=== PATIENT | male | born 1970 | race Two or more races ===

== ENCOUNTER 2017-03-12 12:19 | Day surgery (SDC) | payer BC ==
[2017-03-06 14:20] VITALS: BMI 34.0
[~2017-03-12 12:19] MED LIST: DEXAMETHASONE SOD PHOSPHATE 10 MG/ML 1 ML VIAL IV ONE; HEPARIN SODIUM,PORCINE 5,000 UNIT/ML 1 ML VIAL SQ ONE; LIDOCAINE 1% 20 ML VIAL (10MG/ML) FOR IV START INTRADERMA PRN; MIDAZOLAM 2 MG/2 ML VIAL IV PRN; ONDANSETRON 4 MG/2 ML VIAL IVP ONE; SCOPOLAMINE 1.5MG/72HR PATCH TRANSDERM ONE; ceFAZolin 2 GM in SODIUM CHLORIDE 0.9% 100 ML IVPB ONE
[2017-03-12] MEDS: LACTATED RINGERS 1,000 ML IV SCH ×3 (12:42→23:37)
[2017-03-12] MEDS ORDERED: LABETALOL 5 MG/ML VIAL MDV ONE (13:34)
[2017-03-12] MEDS ORDERED: fentaNYL (PF) 50 MCG/ML 2 ML AMP ONE (13:34)
[2017-03-12] MEDS ORDERED: GLYCOPYRROLATE 0.2 MG/ML 2 ML VIAL ONE (13:34)
[2017-03-12] MEDS ORDERED: VECURONIUM 10 MG VIAL IV ONE (13:34)
[2017-03-12] MEDS ORDERED: MIDAZOLAM 2 MG/2 ML VIAL ONE (13:34)
[2017-03-12] MEDS ORDERED: PROPOFOL 10 MG/ML 20 ML VIAL IV ONE (13:34)
[2017-03-12] MEDS ORDERED: LIDOCAINE 1% INJ 10MG/ML (20 ML MDV) ONE (13:34)
[2017-03-12] MEDS ORDERED: KETOROLAC 30 MG/ML 1 ML VIAL ONE (13:34)
[2017-03-12] MEDS ORDERED: SUCCINYLCHOLINE CHLORIDE 100 MG/5 ML SYR IV ONE (13:34)
[2017-03-12] MEDS ORDERED: HYDROmorphone (PF) 1 MG/ML ONE (13:34)
[2017-03-12] MEDS ORDERED: NEOSTIGMINE 1 MG/ML 10 ML VIAL ONE (13:34)
[2017-03-12] MEDS ORDERED: BUPIVACAINE (PF) 0.25% 30 ML VIAL SQ ONE ×2 (14:00)
--- NOTE | 2017-03-12 15:40 | P.OP ---
Date of Procedure: 03/12/17 Preoperative Diagnosis: Umbilical hernia Postoperative Diagnosis: Incarcerated umbilical hernia with incarcerated preperitoneal fat Procedure(s) Performed: Robot assisted laparoscopic umbilical hernia repair with mesh Implants: Anesthesia: YOLANDAA Surgeon: Krystal Thakur Estimated Blood Loss (ml): 5 Pathology: none sent Condition: stable Indications for Procedure: Operative Findings: A Rodas had a small umbilical hernia which measured 2.5 cm in fascial defect another small just off the midline hernia which was 1.5 cm defect. Patient also has bilateral inguinal hernias which are very small and were not clinically palpable prior to the procedure or are not symptomatic. The patient continues to smoke and I explained to them the risk of recurrence. Once the patient sees me in the office will discuss what we need to do for those bilateral inguinal hernias he was not consented for this time and he is not currently symptomatically from them. Description of Procedure: Informed consent was obtained and the patient prior to the operation. Patient identified in the preoperative holding area taken the operating room placed in supine position given general anesthesia with endotracheal intubation. The patient's right arm was tucked and left plaed. After appropriately positioning the patient the patient was prepped and draped in the usual sterile surgical fashion. Appropriate timeout was called. Patient received 2 g of Ancef for skin prophylaxis and 5000 units of subcu heparin for thromboprophylaxis preoperatively. SCDs were also placed. Left upper quadrant with a identified and infiltrated with lidocaine small incision was made with the help of 11 blade and then a Veress needle was introduced position of which was checked with the help of the drop test. The abdomen was then insufflated to 15 mmHg. Once that was done, 12 mm port was placed in the left upper quadrant and 2 8 mm ports were placed in the left upper quadrant and left lower quadrant respectively. At this time for laparoscopic scope was removed and the robot was docked with the 12 mm camera and the progress in the left hand and scissors in the right hand were taken.. The hernia was identified and after taking down the preperitoneal fat which revealed another occult hernia were measured. The umbilical hernia was 2 cm fascial defect and the other hernia which was inferior and lateral to it was 1.5 cm fascial defect. A preperitoneal plane was created around the fascial defect extending below so that there was good area to place the mesh . After that the fascial defect was closed with a running 0 stratafix on a [address]1 Once that was done and the needle was removed a 11.4 cm circular ventral like [address] . Running 2 0V lock suture was used to stitch the mesh to the abdominal wall. Once that was done both needles were removed. The mesh was flat well in placed with good overlap. There is no bleeding. At this time the procedure was terminated. The robot was undocked and its instruments removed. Using the laparoscope the 12 mm port site was closed with a Mike Ann and 0 Vicryl. The ports were removed abdomen was desufflated and the skin was closed with the help of 4-0 Monocryl. Dermabond was applied. The patient tolerated the procedure well there were no complications patient was taken to recovery room in stable condition after extubation. Plan - Discharge Summary New Discharge Prescriptions: No Action Hydrocodone/Acetaminophen [[place] 10-325] 1 tab PO BID PRN PRN Reason: Pain Wellbutrin(Dose Unknown) 1 tab PO QAM Multivitamins, Thera [Multivitamin (formulary)] 1 tab PO DAILY Discharge Medication List Hydrocodone/Acetaminophen [[place] 10-325] 1 tab PO BID PRN 03/06/17 [History] Multivitamins, Thera [Multivitamin (formulary)] 1 tab PO DAILY 03/06/17 [History ] Wellbutrin(Dose Unknown) 1 tab PO QAM 03/06/17 [History]
[2017-03-12] MEDS ORDERED: LACTATED RINGERS 1,000 ML IV ONE (15:45)
[2017-03-12] MEDS: HYDROmorphone 1 MG/ML 1 ML SYRINGE IVP PRN ×4 (15:58→16:19)
[2017-03-12] MEDS ORDERED: MEPERIDINE 50 MG/ML SYRINGE IVP ONE (16:34)
[2017-03-12] MEDS ORDERED: ONDANSETRON 4 MG/2 ML VIAL IVP ONE (16:58)
[2017-03-12] MEDS ORDERED: HYDROcodone/APAP 10-325MG 1 EACH TAB PO ONE (19:45)
[2017-03-12] MEDS ORDERED: ONDANSETRON ODT 4 MG TAB PO PRN (20:12)
--- NOTE | 2017-03-12 20:32 | P.GSHP ---
History of Present Illness H&P Date: 03/12/17 Chief Complaint: hypotension s/p ventral hernia repair Patient underwent an uneventful robto assisted laparoscopic ventral hernia. The patient is not hypertensive and does not take anithypertensive medications. He was given labetalol during the procedure. Post oepratively, the patient has had significant nausea and light headedness with hyptensio with his blood pressure in the 100/60 range. He was given IV fluids and is doing better. Has not urinated. He was also given dilaudid in post op. - Constitutional Constitutional: Reports weakness - Cardiovascular Cardiovascular: Reports lightheadedness, Denies chest pain, Denies shortness of breath - Respiratory Respiratory: Denies cough, Denies 7 - Gastrointestinal Gastrointestinal: Reports nausea, Reports vomiting - Neurological Neurological: Denies numbness, Denies weakness - Psychiatric Psychiatric: Denies anxiety, Denies depression - Endocrine Endocrine: Denies fatigue, Denies weight change Past Medical History Additional Past Medical History / Comment(s): umbilical hernia History of Any Multi-Drug Resistant Organisms: None Reported Past Surgical History: Hernia Repair Additional Past Surgical History / Comment(s): hiatal hernia surgery, 3 epidural spinal injections Past Anesthesia/Blood Transfusion Reactions: No Reported Reaction Past Psychological History: No Psychological Hx Reported Smoking Status: Former smoker Past Alcohol Use History: None Reported Additional Past Alcohol Use History / Comment(s): quit smoking 4 days ago, smoked since age 16, 1 PPD Past Drug Use History: None Reported - Past Family History Mother Family Medical History: Cancer Medications and Allergies Home Medications Medication Instructions Recorded Confirmed Type Hydrocodone/Acetaminophen [[place] 1 tab PO BID PRN 03/06/17 03/06/17 History 10-325] Multivitamins, Thera [Multivitamin 1 tab PO DAILY 03/06/17 03/06/17 History (formulary)] Wellbutrin(Dose Unknown) 1 tab PO QAM 03/06/17 03/06/17 History Allergies Allergy/AdvReac Type Severity Reaction Status Date / Time No Known Allergies Allergy Verified 03/06/17 14:13 Surgical - Exam Vital Signs Temp Pulse Resp Pulse Ox 98.6 F 64 16 98 03/12/17 12:36 03/12/17 12:36 03/12/17 12:36 03/12/17 12:36 - General well developed, well nourished, moderate distress - Eyes PERRL, normal ocular movement - ENT normal pinna, normal nares - Neck no masses - Respiratory normal expansion, normal respiratory effort - Cardiovascular Rhythm: regular - Abdomen Soft and appropriately tender incisions look good - Neurologic normal coordination - Musculoskeletal normal posture Assessment and Plan (1) Ventral hernia Status: Acute (2) Hypotension Status: Acute Plan: Patient has undergone a complicated robot-assisted laparoscopic ventral hernia repair is having significant amount of pain and was given labetalol and Dilaudid postoperatively and intraoperatively. This resulted in hypotension he also had a bladder scan done in recovery which revealed 483 mL of urine in the bladder. At this time a scopolamine patch is being placed for nausea. Zofran she'll be placed she will given IV fluids and start Been Ordered. The Patient Will Be Admitted to Constantly with Medical Consult for the Hypertension Further Condition to Follow-Up to the Labs Are Done.
[2017-03-12 21:12] LABS: Anion Gap 12 mmol/L; Blood Urea Nitrogen 16 mg/dL (9-20); Calcium 9.4 mg/dL (8.4-10.2); Carbon Dioxide 22 mmol/L (22-30); Chloride 107 mmol/L (98-107); Glucose 149 mg/dL (74-99); Non-African American GFR(MDRD) >60 (>60 ml/min/1.73 sqM); Potassium 4.8 mmol/L (3.5-5.1); Sodium 141 mmol/L (137-145)
[2017-03-12 21:14] LABS: Basophils % (A) 0 %; CH 32.7; CHCM 33.2; Eosinophils % (A) 0 %; HCT 47.2 % (39.0-53.0); HDW 2.52; HGB 15.5 gm/dL (13.0-17.5); Luc # (Auto) 0.05; Luc % (Auto) 0; Lymphocytes # (A) 1.6 k/uL (1.0-4.8); Lymphocytes % (A) 12 %; MCH 32.4 pg (25.0-35.0); MCHC 32.7 g/dL (31.0-37.0); MCV 99.1 fL (80.0-100.0); Monocytes # (A) 0.4 k/uL (0-1.0); Monocytes % (A) 3 %; Neutrophils % (A) 84 %; RBC 4.77 m/uL (4.30-5.90); RDW 13.6 % (11.5-15.5); WBC (Perox) 14.63
[2017-03-12] MEDS ORDERED: ACETAMINOPHEN TAB 325 MG TAB PO PRN (22:20)
[2017-03-12] MEDS: HEPARIN SODIUM,PORCINE 5,000 UNIT/ML 1 ML VIAL SQ SCH (23:07)
--- NOTE | 2017-03-12 23:12 | P.CONS ---
History of Present Illness - Reason for Consult Consult date: 03/12/17 Requesting physician: Krystal Thakur - Chief Complaint Low blood pressure - History of Present Illness History of presenting complaint: This is a very pleasant [address] De Anda. Patient underwent a robotic repair of incarcerated umbilical hernia repair and lysis conditions. Postoperative patient sitting on the bed. Blood pressure was running low. Denies any chest pain or shortness of breath and some dizziness and nausea vomiting. Propped up in bed. No prior cardiac history has been in good health otherwise GEN.: Tired EYES: None HEENT: None NECK: None RESPIRATORY: None CARDIOVASCULAR: None GASTROINTESTINAL: Some pain at the operative site GENITOURINARY: None MUSCULOSKELETAL: None LYMPHATICS: None HEMATOLOGICAL: None PSYCHIATRY: None NEUROLOGICAL: None Past medical and surgical history: Umbilical hernia, hiatal hernia surgery, 3 epidural spinal injections Home medications are reviewed in the computer Social history: Smoked a pack a day for 30 years. Week ago. No alcohol. Patient employed at [employer]. This is his fiance Family history of cancer type unknown On examination VITAL SIGNS: 97.6, 82, 20, systolic systolic blood pressure down to 90s GENERAL: Well built, BMI 34 sitting up, tired appearing]. EYES: Pupils equal. Conjunctiva normal. HEENT: External appearance of nose and ears normal, oral cavity grossly normal. NECK: JVD not raised; masses not palpable. HEART: First and second heart sounds are normal; no edema. LUNGS: Respiratory rate normal; clear to auscultation. ABDOMEN: Soft, mild tenderness, liver spleen not palpable, no masses palpable. LYMPHATICS: No lymph nodes palpable in the axilla and neck. PSYCH: Alert and oriented x3; mood and affect normal. NEUROLOGICAL: Cranial nerves grossly intact; no facial asymmetry, power and sensation grossly intact. Investigation: White count 13, hemoglobin 15.5, potassium 4.4, glucose 149 Assessment: -Acute postop hypotension likely a side effect of anesthesia. At her baseline patient been in good shape active is no other obvious reason for the same. Patient blood pressure he started to come up -Hyper glycemia probably from surgical stress -Leukocytosis likely reactive from surgery no clinical evidence of infection -Status post incarcerated umbilical hernia repair via robotic Plan: Patient will be given IV fluid boluses has good Venodyne boots for DVT prophylaxis. Care was discussed with the patient repeat a CBC in the morning. Thank you Dr. Thakur Past Medical History Additional Past Medical History / Comment(s): umbilical hernia History of Any Multi-Drug Resistant Organisms: None Reported Past Surgical History: Hernia Repair Additional Past Surgical History / Comment(s): hiatal hernia surgery, 3 epidural spinal injections Past Anesthesia/Blood Transfusion Reactions: No Reported Reaction Past Psychological History: No Psychological Hx Reported Smoking Status: Former smoker Past Alcohol Use History: None Reported Additional Past Alcohol Use History / Comment(s): quit smoking 4 days ago, smoked since age 16, 1 PPD Past Drug Use History: None Reported - Past Family History Mother Family Medical History: Cancer Medications and Allergies Home Medications Medication Instructions Recorded Confirmed Type Hydrocodone/Acetaminophen [[place] 1 tab PO BID PRN 03/06/17 03/06/17 History 10-325] Multivitamins, Thera [Multivitamin 1 tab PO DAILY 03/06/17 03/06/17 History (formulary)] Wellbutrin(Dose Unknown) 1 tab PO QAM 03/06/17 03/06/17 History Allergies Allergy/AdvReac Type Severity Reaction Status Date / Time No Known Allergies Allergy Verified 03/06/17 14:13 Results CBC & Chem 7: 03/12/17 20:43 03/12/17 20:43 Labs: Abnormal Lab Results - Last 24 Hours (Table) 03/12/17 03/12/17 Range/Units 20:43 20:43 WBC 13.0 H (3.8-10.6) k/uL Neutrophils # 11.0 H (1.3-7.7) k/uL Glucose 149 H (74-99) mg/dL
[2017-03-12] MEDS: KETOROLAC 30 MG/ML 1 ML VIAL IVP SCH (23:31)
[2017-03-13] MEDS: HYDROcodone/APAP 7.5-325MG 1 EACH TAB PO PRN ×2 (01:43→06:45)
[2017-03-13] MEDS: LACTATED RINGERS 1,000 ML IV SCH (01:46)
[2017-03-13] MEDS: KETOROLAC 30 MG/ML 1 ML VIAL IVP SCH (06:11)
--- NOTE | 2017-03-13 07:02 | P.DS ---
Providers Date of admission: 03/12/2017 Expected date of discharge: 03/13/17 Attending physician: Krystal Thakur Consults: 03/12/17 20:14 Consult Physician Routine Consulting Provider: Rivera Wilder Consult Reason/Comments: hypotension Do you want consulting provider notified?: Yes Primary care physician: Vitor De Anda - Discharge Diagnosis(es) (1) Ventral hernia Current Visit: Yes Status: Acute (2) Hypotension Current Visit: Yes Status: Acute Hospital Course: A 46-year-old male who presented with symptomatically umbilical hernia for which she underwent a robot assisted laparoscopic hernia repair postoperatively developed hypotension which was multifactorial including dehydration and the demonstration of labetalol and Dilaudid. Postoperatively she he's been well with increased blood pressure is labs looked normal is otherwise alert awake oriented without any lightheadedness dizziness his abdomen is appropriately tender and no obvious signs of bleeding. Patient tolerating his liquids well. Patient is being discharged home to follow up in clinic in 2 weeks. Pertinent Studies: labs Procedures: RObto assisted laparoscopic umbilical hernia repair Patient Condition at Discharge: Good Plan - Discharge Summary New Discharge Prescriptions: New Ibuprofen [Motrin] 800 mg PO Q8H PRN #30 tab PRN Reason: Pain Magnesium Hydroxide [Milk of Magnesia] 10 ml PO Q24H PRN #600 ml PRN Reason: Constipation HYDROcodone/APAP 10-325MG [[place] 10-325] 1 tab PO Q6H PRN #10 tab PRN Reason: Pain No Action Hydrocodone/Acetaminophen [[place] 10-325] 1 tab PO BID PRN PRN Reason: Pain Wellbutrin(Dose Unknown) 1 tab PO QAM Multivitamins, Thera [Multivitamin (formulary)] 1 tab PO DAILY Discharge Medication List Hydrocodone/Acetaminophen [[place] 10-325] 1 tab PO BID PRN 03/06/17 [History] Multivitamins, Thera [Multivitamin (formulary)] 1 tab PO DAILY 03/06/17 [History ] Wellbutrin(Dose Unknown) 1 tab PO QAM 03/06/17 [History] Ibuprofen [Motrin] 800 mg PO Q8H PRN #30 tab 03/12/17 [Rx] Magnesium Hydroxide [Milk of Magnesia] 10 ml PO Q24H PRN #600 ml 03/12/17 [Rx] HYDROcodone/APAP 10-325MG [[place] 10-325] 1 tab PO Q6H PRN #10 tab 03/13/17 [Rx] Follow up Appointment(s)/Referral(s): Krystal Thakur MD [STAFF PHYSICIAN] - 2 Weeks (please call and make follow up appt. office closed) Patient Instructions/Handouts: *Surgery [facility] - (Anesthesia) Discharge Instructions Outpatient Surgery, Laparoscopic Herniorrhaphy (DC), Umbilical Hernia (DC) Activity/Diet/Wound Care/Special Instructions: Regular diet Ambulate as tolerated Use incentive spirometer as directed No driving on pain medications or when having pain May shower in 24 hours No heavy liftin more than 20 lbs for 6 weeks Discharge Disposition: HOME SELF-CARE
[2017-03-13 07:59] LABS: Basophils % (A) 0 %; CH 33.1; CHCM 33.9; Eosinophils % (A) 0 %; HCT 42.4 % (39.0-53.0); HDW 2.46; Luc # (Auto) 0.14; Luc % (Auto) 1; Lymphocytes # (A) 1.4 k/uL (1.0-4.8); Lymphocytes % (A) 11 %; MCH 32.3 pg (25.0-35.0); MCHC 32.9 g/dL (31.0-37.0); MCV 98.2 fL (80.0-100.0); Mean Platelet Volume 7.6; Monocytes # (A) 0.4 k/uL (0-1.0); Monocytes % (A) 3 %; Neutrophils # (A) 10.6 k/uL (1.3-7.7); Neutrophils % (A) 85 %; RBC 4.31 m/uL (4.30-5.90); RDW 13.9 % (11.5-15.5); WBC 12.5 k/uL (3.8-10.6); WBC (Perox) 12.23
[2017-03-13 08:07] LABS: Anion Gap 11 mmol/L; Blood Urea Nitrogen 13 mg/dL (9-20); Carbon Dioxide 22 mmol/L (22-30); Chloride 106 mmol/L (98-107); Glucose 114 mg/dL (74-99); Non-African American GFR(MDRD) >60 (>60 ml/min/1.73 sqM); Potassium 4.1 mmol/L (3.5-5.1); Sodium 139 mmol/L (137-145)
[2017-03-13] MEDS: HEPARIN SODIUM,PORCINE 5,000 UNIT/ML 1 ML VIAL SQ SCH (08:43)
[2017-03-13] MEDS ORDERED: WELLBUTRIN PO SCH (09:00)
[2017-03-13 10:45] VITALS: BP 131/75; PULSE 93; RESP 12; TEMP 98.9
--- NOTE | 2017-03-14 08:11 | PN ---
DATE OF SERVICE: 03/13/2017 PRESENTING COMPLAINT: Hypertension. INTERVAL HISTORY: The patient is status post abdominal hernia repair. Patient doing better. Did tolerate some diet, no nausea, vomiting. Some pain at the operative site. Up and about, at the bedside. Review of systems done for constitutional, cardiovascular, GI, pulmonary; relevant findings as above. Current medications are reviewed. On examination, temperature 98.9, pulse 93, respirations 12, blood pressure 130/ 75, pulse ox 95% on room air. GENERAL APPEARANCE: Sitting up, comfortable. EYES: Pupils equal, conjunctivae normal. NECK: JVD not raised, mass not palpable. RESPIRATORY: Effort normal. Lungs are clear. CARDIOVASCULAR: Further edema. ABDOMEN: Tenderness present, soft, bowel sounds present. PSYCHIATRY: Alert and oriented x3, mood and affect normal. INVESTIGATIONS: White count 12.5, hemoglobin 4.1. ASSESSMENT: 1. Acute postoperative hypertension, likely a side effect of anesthesia, recovered. 2. Hyperglycemia from surgical stress, improved. 3. Leukocytosis, likely reactive from surgery. 4. Status post incarcerated umbilical hernia repair. PLAN: Care was discussed with the patient and . Questions were answered. Patient should follow up with his family doctor upon discharge. Thank you, Dr. Thakur. BRAD
== END 2017-03-13 11:33 | disposition home or self-care (01) ==
LOC: OR 12:19 → 3SUR 15:57 → OR 03-13 11:33
PROVIDERS: ATTEND Surgery
DX: K42.0 Umbilical hernia with obstruction, without gangrene (principal); K40.20 Bilateral inguinal hernia, without obstruction or gangrene, not specified as recurrent; I10 Essential (primary) hypertension; F17.200 Nicotine dependence, unspecified, uncomplicated; Z79.899 Other long term (current) drug therapy
CPT/HCPCS: 49653; S2900; 80048; 85025